=== PATIENT | male | born 1995 | race Caucasian/White ===

== ENCOUNTER 2020-04-28 12:12 | Inpatient (IN) | payer MEDICAID, OTHER ==
[~2020-04-28] VITALS: Ht 175.3 cm; Wt 85.8 kg
[2020-04-28] MEDS ORDERED: PERTUSS(ACELL),DIPH,TET VAC/PF 0.5 ML VIAL IM ONE (12:45)
[2020-04-28 13:03] LABS: BASOPHILS % (AUTO) 0.2 % (0.0-2.0); EOSINOPHILS % (AUTO) 0.3 % (1.0-6.0); HEMATOCRIT 41.6 % (41-53); HEMOGLOBIN 13.6 g/dL (13.5-17.5); LYMPHOCYTES # (AUTO) 0.9 K/uL (1.0-4.8); LYMPHOCYTES % (AUTO) 9.6 % (22.0-44.0); MEAN CORPUSCULAR HEMOGLOBIN 29.9 pg (26.0-34.0); MEAN CORPUSCULAR HGB CONC 32.7 G/dL (31.0-37.0); MEAN CORPUSCULAR VOLUME 91 fL (80-100); MONOCYTES # (AUTO) 0.7 K/uL (0.1-1.0); MONOCYTES % (AUTO) 7.6 % (2.0-9.0); NEUTROPHILS # (AUTO) 7.9 K/uL (1.8-7.7); NEUTROPHILS % (AUTO) 82.3 % (40.0-70.0); PLATELET COUNT (AUTO) 232 K/uL (150-450); RED BLOOD CELL COUNT(AUTO) 4.55 MIL/uL (4.50-5.90)
[2020-04-28 13:13] LABS: ANION GAP 11 mmol/L (8-16); CALCIUM, TOTAL 9.3 mg/dL (8.8-10.5); CARBON DIOXIDE 25 mmol/L (22-29); CHLORIDE 104 mmol/L (98-107); CREATININE 1.09 mg/dL (0.60-1.30); GLOMERULAR FILTR. RATE CALC > 60 mL/min (>60); GLUCOSE,RANDOM 102 mg/dL (70-110); POTASSIUM 3.4 mmol/L (3.5-5.1); SODIUM SERUM 140 mmol/L (136-145); UREA NITROGEN, BLOOD 10 mg/dL (7-18)
[2020-04-28 13:19] LABS: ALANINE AMINOTRANSFERASE 20 U/L (12-78); ALBUMIN 4.4 g/dL (3.4-5.0); ALKALINE PHOSPHATASE 70 U/L (46-116); ASPARTATE AMINOTRANSFERASE 11 U/L (15-37); BILIRUBIN,TOTAL 0.7 mg/dL (0.1-1.0); TOTAL PROTEIN, SERUM 7.7 g/dL (6.4-8.2)
[2020-04-28 15:14] LABS: SALICYLATE 0.7 mg/dL (2.8-20.0)
[2020-04-28] MEDS ORDERED: TUBERCULIN, PURIFIED PROTEIN DERIVATIVE 5 TU/0.1 ML SYRINGE ID ONE (15:15)
[2020-04-28] MEDS ORDERED: LOPERAMIDE HCL 2 MG CAPSULE PO PRN (15:15)
[2020-04-28] MEDS ORDERED: MAG HYDROX/AL HYDROX/SIMETH ES 30 ML SUSPENSION UDCUP PO PRN (15:15)
[2020-04-28] MEDS ORDERED: HydrOXYzine PAMOATE 50 MG CAPSULE PO PRN (15:15)
[2020-04-28] MEDS ORDERED: MAGNESIUM HYDROXIDE SUSPENSION 30 ML UDCUP PO PRN (15:15)
[2020-04-28] MEDS ORDERED: ZOLPIDEM TARTRATE 10 MG TABLET PO PRN (15:15)
[2020-04-28] MEDS ORDERED: OLANZapine 5 MG RAPDIS TABLET PO PRN (15:15)
[2020-04-28] MEDS ORDERED: GuaiFENesin/D-METHORPHAN [SUGAR-FREE] 200-20MG/10 ML SYRUP UDCUP PO PRN (15:15)
[2020-04-28] MEDS ORDERED: ACETAMINOPHEN 325 MG TABLET PO PRN (15:15)
[2020-04-28] MEDS ORDERED: LORazepam 2 MG TABLET PO PRN (15:15)
[2020-04-28 15:18] LABS: ACETAMINOPHEN < 2 mcg/mL (10-30)
[2020-04-28 18:06] VITALS: BP 139/74
[2020-04-28] MEDS ORDERED: POTASSIUM CHLORIDE 20 MEQ ER TABLET PO ONE (19:30)
[2020-04-28] MEDS: DIVALPROEX SODIUM 500 MG ER TABLET PO SCH (20:35)
[2020-04-28] MEDS: THIAMINE 100 MG TABLET PO SCH (20:35)
[2020-04-29 04:43] VITALS: BP 128/75
[2020-04-29 08:07] VITALS: BP 131/64
[2020-04-29] MEDS: MULTIVITAMINS WITH MINERALS, THERAPEUTIC TABLET PO SCH (08:30)
[2020-04-29] MEDS: THIAMINE 100 MG TABLET PO SCH ×2 (08:30→16:49)
[2020-04-29] MEDS: FOLIC ACID 1 MG TABLET PO SCH (08:31)
[2020-04-29] MEDS: BACITRACIN 28.4 GM OINTMENT TP SCH ×2 (08:31→16:49)
[2020-04-29] MEDS: NALTREXONE HCL 50 MG TABLET PO SCH (08:31)
[2020-04-29 08:39] LABS: HEMOGLOBIN A1C 5.2 % (3.8-5.6)
[2020-04-29 09:03] LABS: CHOL/HDL RATIO 4.5 (4.2-7.3); FREE T4 (FREE THYROXINE) 1.56 ng/dL (0.76-1.46); POTASSIUM 3.5 mmol/L (3.5-5.1); THYROID STIMULATING HORMONE 0.64 uIU/mL (0.36-3.74)
[2020-04-29] MEDS: PROMETHAZINE HCL 25 MG TABLET PO PRN (10:21)
[2020-04-29 16:15] VITALS: BP 120/70
[2020-04-29] MEDS: DIVALPROEX SODIUM 500 MG ER TABLET PO SCH (20:33)
[2020-04-30] MEDS: PROMETHAZINE HCL 25 MG TABLET PO PRN (01:36)
[2020-04-30 04:47] VITALS: BP 125/65
[2020-04-30] MEDS: BACITRACIN 28.4 GM OINTMENT TP SCH ×2 (09:00→16:03)
[2020-04-30] MEDS: FOLIC ACID 1 MG TABLET PO SCH (09:59)
[2020-04-30] MEDS: THIAMINE 100 MG TABLET PO SCH ×2 (09:59→16:02)
[2020-04-30] MEDS: MULTIVITAMINS WITH MINERALS, THERAPEUTIC TABLET PO SCH (09:59)
[2020-04-30] MEDS: NALTREXONE HCL 50 MG TABLET PO SCH (09:59)
[2020-04-30 10:07] VITALS: BP 141/90
[2020-04-30] MEDS ORDERED: NALT50TA PO (13:29)
[2020-04-30] MEDS ORDERED: DIVA-80 PO (13:29)
[2020-04-30 16:26] VITALS: BP 128/69
[2020-04-30] MEDS: DIVALPROEX SODIUM 500 MG ER TABLET PO SCH (20:10)
[2020-05-01 04:20] VITALS: BP 121/68
[2020-05-01] MEDS: FOLIC ACID 1 MG TABLET PO SCH (08:31)
[2020-05-01] MEDS: NALTREXONE HCL 50 MG TABLET PO SCH (08:31)
[2020-05-01] MEDS: BACITRACIN 28.4 GM OINTMENT TP SCH (08:31)
[2020-05-01] MEDS: THIAMINE 100 MG TABLET PO SCH (08:31)
[2020-05-01] MEDS: MULTIVITAMINS WITH MINERALS, THERAPEUTIC TABLET PO SCH (08:31)
[2020-05-01 08:34] VITALS: BP 142/60
== END 2020-05-01 14:00 | disposition home or self-care (01) | DRG 885 ==
LOC: EMS 12:19 → B3A 16:15
PROVIDERS: ADMIT Psychiatry & Neurology Psychiatry; ATTEND Psychiatry & Neurology Psychiatry
DX: F33.2 Major depressive disorder, recurrent severe without psychotic features (principal); D68.0 Von Willebrand disease; R45.851 Suicidal ideations; F12.90 Cannabis use, unspecified, uncomplicated; G62.9 Polyneuropathy, unspecified; J45.909 Unspecified asthma, uncomplicated; Z91.5 Personal history of self-harm; Z79.899 Other long term (current) drug therapy
CPT/HCPCS: 83036; 84132; 84439; 84443; 86592; 90715; G0480; G0481